=== PATIENT | male | born 1935 | race Caucasian/White ===

== ENCOUNTER → 2017-08-02 14:38 | Outpatient (CLI) | payer MEDICARE, SELFPAY | PROVIDERS: PCP Family Medicine; Visit Provider Family Medicine | DX: I49.9 Cardiac arrhythmia, unspecified (principal) | CPT/HCPCS: 93005 ==

== ENCOUNTER 2023-04-26 07:50 | Outpatient (CLI) | payer OTHER, SELFPAY ==
[2023-04-26 08:12] LABS: Basophils % 0.5 % (0.1-2.0); Eosinophils # 0.1 K/mm3 (0.0-0.4); Eosinophils % 1.7 % (0.1-12.0); Hematocrit 41.3 % (42.0-52.0); Hemoglobin 13.7 g/dL (14.1-18.0); Lymphocytes # 1.6 K/mm3 (0.7-4.5); Lymphocytes % 34.8 % (10-50); Mean Corpuscular HGB Conc 33.1 g/dL (31.8-35.4); Mean Corpuscular Hemoglobin 30.8 pg (27.0-31.2); Mean Corpuscular Volume 93.1 fl (80-94); Mean Platelet Volume 8.8 fl (7.4-10.4); Monocytes # 0.3 K/mm3 (0.1-1.0); Monocytes % 7.2 % (1.7-9.3); Neutrophils # 2.6 K/mm3 (1.8-7.8); Neutrophils % 55.8 % (37.0-80.0); Platelet Count 167 K/mm3 (142-424); Red Blood Count 4.44 M/mm3 (4.60-6.20); Red Cell Distribution Width 14.2 % (11.5-17.5); White Blood Count 4.7 K/mm3 (4.8-10.8)
[2023-04-26 08:47] LABS: Erythrocyte Sedimentation Rate 13 mm/hr (0-20)
[2023-04-26 09:12] LABS: Chloride 105 mmol/L (98-107)
[2023-04-26 09:13] LABS: Potassium 4.4 mmoL/L (3.5-5.1); Sodium 137 mmol/L (136-145)
[2023-04-26 09:15] LABS: Alanine Aminotransferase 17 U/L (12-78); Albumin Level 3.9 g/dl (3.5-5.0); Albumin/Globulin Ratio 1.4 (1.1-1.8); Alkaline Phosphatase 111 U/L (38-126); Anion Gap 7.4 mEq/L (5-15); Aspartate Amino Transferase 29 U/L (17-59); Bilirubin,Total 0.6 mg/dl (0.2-1.3); Blood Urea Nitrogen 18 mg/dl (9-20); Carbon Dioxide 29 mmol/L (22.0-30.0); Estimated Glomerular Filt Rate 91 ml/min (>60); GFR (African American) 111 ML/MIN (>60); Globulin 2.7 g/dL (1.3-3.2); Total Protein,Serum 6.6 g/dl (6.3-8.2)
[2023-04-26 09:16] LABS: Calcium 9.2 mg/dl (8.4-10.2); Glucose 86 mg/dl (74-100)
[2023-04-26 09:21] LABS: C-Reactive Protein 0.8 mg/L (0-4)
[2023-04-26 09:46] LABS: Thyroid Stimulating Hormone 2.13 uIU/mL (0.465-4.68)
[2023-04-26 15:01] LABS: Vitamin B12 414 pg/mL (239-931)
[2023-04-27 12:40] LABS: Rapid Plasma Reagin Ab Titer Non Reactive titer (NonRea<1:1)
[2023-04-29 12:13] LABS: Antinuclear Antibodies (ANA) NEGATIVE
== END 2023-04-26 23:59 ==
LOC: RT 07:52
PROVIDERS: PCP Family Medicine; Visit Provider Nurse Practitioner Family
DX: R41.82 Altered mental status, unspecified (principal); G21.9 Secondary parkinsonism, unspecified; G93.40 Encephalopathy, unspecified
CPT/HCPCS: 36415; 80053; 82607; 82746; 84443; 85025; 85651; 86038; 86140; 86225; 86235; 86593; 93270; 95816; 95819

== ENCOUNTER 2023-04-29 07:26 | Outpatient (CLI) | payer OTHER, SELFPAY ==
--- NOTE | 2023-04-29 07:26 | MR_ITS ---
FINAL REPORT CLINICAL HISTORY: Encephalopathy, imbalance, hypoperfusion FINDINGS: Multiple projection images of the brain arterial vasculature were obtained without contrast. The raw data images were also reviewed. The distal internal carotid artery has an unremarkable appearance without evidence of significant stenosis or occlusion. The distal vertebral artery is not well seen. The basilar artery is tortuous. The proximal anterior, middle and posterior cerebral arteries have an unremarkable appearance. There is no evidence of significant stenosis or major branch occlusion. No aneurysm or vascular malformation is identified. IMPRESSION: No acute process. Reviewed, Interpreted and Dictated by Raz Zhong III, MD Transcribed by Karie Valencia Authenticated and [facility]
--- NOTE | 2023-04-29 07:58 | CA_ITS ---
FINAL REPORT TECHNIQUE: Color Doppler, duplex Doppler and marcelo scale sonography of the bilateral neck arterial vasculature was performed. Velocities were measured in the carotid arteries. Stenosis evaluation based on the validated velocity criteria. CLINICAL HISTORY: Imbalance, fluctuating mental status FINDINGS: The peak systolic velocity of the right common carotid artery is 96 cm/s. The peak systolic velocity of the right internal carotid artery is 88 cm/s and end diastolic velocity 20 cm/s. The ICA/CCA ratio is 1.2. A moderate amount of plaque is present. The right external carotid artery is patent. The right vertebral artery is patent with antegrade flow. The peak systolic velocity of the left common carotid artery is 88 cm/s. The peak systolic velocity of the left internal carotid artery is 108 cm/s and end diastolic velocity 24 cm/s. The ICA/CCA ratio is 1.8. A moderate amount of plaque is present. The left external carotid artery is patent.The left vertebral artery is patent with antegrade flow. IMPRESSION: Less than 50% bilateral carotid stenoses. Bilateral patent vertebral arteries with antegrade flow. If indicated, CTA or MRA could further evaluate. Reviewed, Interpreted and Dictated by Raz Zhong III, MD Transcribed by Karie Valencia Authenticated and . [facility]
== END 2023-04-29 23:59 ==
LOC: RAD 07:26
PROVIDERS: PCP Family Medicine; Visit Provider Nurse Practitioner Family
DX: R41.82 Altered mental status, unspecified; G93.40 Encephalopathy, unspecified; G21.9 Secondary parkinsonism, unspecified; R26.89 Other abnormalities of gait and mobility
CPT/HCPCS: 70544; 93880; 94762

== ENCOUNTER 2023-05-10 08:55 | Outpatient (CLI) | payer MEDICARE, SELFPAY ==
--- NOTE | 2023-05-10 08:56 | MR_ITS ---
FINAL REPORT TECHNIQUE: Multiplanar and multisequence imaging of the brain was obtained before and after contrast injection. CLINICAL HISTORY: Encephalopathy. memory loss. unsteady gait COMPARISON: None FINDINGS: There is global cerebral atrophy with associated ex vacuo dilatation of the ventricles, age-appropriate. There is no mass effect or midline shift. Small foci of periventricular and subcortical white matter are nonspecific, favor chronic changes of ischemic/gliotic microvascular disease. No hydrocephalus. The cerebellum and brainstem have a normal appearance. There are no areas of restricted diffusion on diffusion weighted images to suggest acute infarct. Soft tissues are without acute abnormality. Post contrast images reveal no pathologic contrast enhancement. IMPRESSION: No acute intracranial abnormality and no pathologic contrast enhancement. Periventricular and subcortical T2 abnormality, likely related to changes of chronic small vessel ischemia. Reviewed, Interpreted and Dictated by Mary Blum MD Transcribed by Ann Marie Nj Authenticated and [facility]
[2023-05-10] MEDS: SODIUM CHLORIDE 0.9% 10ML SYR (RAD ONLY) 10 ML IV (10:05)
[2023-05-10] MEDS: GADOTERIDOL INJ 17ML SYRINGE 14 ML IV (10:05)
== END 2023-05-10 23:59 ==
LOC: RAD 08:56
PROVIDERS: PCP Family Medicine; Visit Provider Nurse Practitioner Family
DX: R41.82 Altered mental status, unspecified; G21.9 Secondary parkinsonism, unspecified; G93.40 Encephalopathy, unspecified
CPT/HCPCS: 70553; A9576

== ENCOUNTER 2023-06-24 07:31 | Outpatient (CLI) | payer MEDICARE, SELFPAY ==
--- NOTE | 2023-06-24 | CA_ITS ---
APPROVED REPORT Exam: Pharmacologic Technologist: Radha Cotton, Ht: 5 ft 6 in Wt: 154 lbs BSA: 1.79 m2 HR: 65 bpm BP: 185/104 mmHg Rhythm: NSR, frequent PVCs, ST-T abns inferiorly. NS ST abns laterally, minimal voltage criteria for LVH Medical History Medications: TAMSALOSIN,,,,, Vit D3,,,,, Ibuprofen,,,,, Latanoprost,,,,, OmeGA 3,,,,, FiberCON,,,,, CHOLESTyramine,,,,, Cardiac Risk Factors: FHX of CAD Stress Test Details Test: LEXISCAN HR Resting HR: 67 bpm Max Heart Rate (APMHR): 133 bpm Max HR Achieved: 91 bpm Target HR (85% APMHR): 113 bpm % of APMHR: 68 Recovery HR: 86 bpm BP Resting BP: 185/104 mmHg Max BP: 185/104 mmHg Recovery BP: 107.0/67.0 mmHg ECG Resting ECG: NSR, frequent PVCs, ST-T abns inferiorly, NS ST abns laterally, minimal voltage for LVH Stress ECG: No significant ST changes Arrhythmia: Frequent PVCs, occasional PACs Clinical Exercise duration: 04:00 min Highest Stage Achieved: Exercise capacity: 1.0 METs Stress ECG Conclusion During lexiscan pt experinced flushed feeling, no CP noted. Ectopy: Frequent PVCs, rare PAC. ST changes: No significant ST changes. Conclusion: Non diagnostic lexiscan due to baseline EKG abnormalities. Myoview images reported separately. Test Summary REST . . . . . . . Sitting REST 05:54 . . 67 . 185/104 . . Stage 1 01:00 . . 78 . . . . Stage 2 01:00 . . 84 . . . . Stage 3 01:00 . . 88 . 114/ 73 . . Stage 4 01:00 . . 82 . 103/ 61 . Stop exercise at 04:00 RECOVERY 01:00 . . 81 . 107/ 67 . . RECOVERY 02:00 . . 80 . 100/ 77 . . RECOVERY 03:00 . . 84 . 100/ 77 . . RECOVERY 04:00 . . 79 . 112/ 79 . . RECOVERY 05:00 . . 81 . 121/ 82 . . RECOVERY 05:35 . . / 82 . . Electronically signed by : Vivi Mckeon MD 06/27/2023 01:52:15
--- NOTE | 2023-06-24 07:32 | NM_ITS ---
APPROVED REPORT Exam: Nuclear Stress Test Indication: palpitations..fatigue Patient Location: Outpatient Stress Tech: Jacob NASCIMENTO Tech:EVA Cedillo RT(R)(N) Ht: 5 ft 5 in Wt: 155 lbs HR: 67 bpm BP: 185/104 mmHg BSA: 1.77 m2 Rhythm: NSR TID: 0.94 BMI: 25.7 History: palpitations..fatigue Procedure: Patient received 0.4 mg of intravenous Lexiscan, resting heart rate 67 bpm, resting blood pressure 185/104 mmHg, with Lexiscan maximum heart rate achieved was 91 bpm which is 85 % of the maximum predicted heart rate and blood pressure was 185/104 mmHg. With Lexiscan, patient denied any complaint of chest pain. Cardiac Stress and Resting SPECT Images: Cardiac Stress and Resting SPECT images were obtained using technetium 99m Myoview 32.9 mCi stress and 10.98 mCi at rest. Resting and stress imaging in supine and prone positions demonstrate no evidence of fixed or reversible perfusion defects. Gated imaging demonstrates low normal global and regional LV systolic function. LVEF is calculated at 51%. Conclusion: No evidence of fixed or reversible perfusion defects. Gated imaging demonstrates low normal global and regional LV systolic function. LVEF is calculated at 51%. Of note, during Lexiscan stress testing, the patient had frequent PVCs and occasional PACs at baseline and after administration of Lexiscan. In the setting of frequent PVCs, further evaluation with rhythm monitoring (to evaluate PVC burden) and cardiac MRI (cardiomyopathy protocol, to evaluate for myocardial fibrosis/scarring) is recommended, if clinically feasible and indicated. Electronically signed by : Vivi Mckeon MD 06/27/2023 01:56:44
--- NOTE | 2023-06-24 08:44 | CA_ITS ---
APPROVED REPORT EXAM: Comprehensive 2D, Doppler, and color-flow Echocardiogram Sewer Pipe Sorter: Yissel Olson RVT Ht: 5 ft 6 in Wt: 154lbs BSA: 1.79 BP: 154/94 mmHg Indications: VTACH,ABN EKG,BRADYCARDIA,PALPS 2D Dimensions IVSd 1.55 cm M: 0.6-1.2 LVEF (Visual) 57.40 % PWd 0.91 cm M: 0.6 - 1.2 LA Volume 53.50 mL LVDd 2.65 cm M: 4.2 - 5.9 LA Volume Index 29.89 mL/m2 (M/F) 16-34 LVDs 1.89 cm M: 2.5 - 4.0 M-Mode Dimensions LA Diam 4.14 cm (1.9-4.0) LV Diastology E Decel Time 237 (160-240 msec) E/A Ratio 0.8 Aortic Valve TIFFANY Index 0.81 cm2/m2 AoV Peak Naun. 182.0 (50-130 cm/s) AO Peak GR. 13.20 mmHg AO Mean GR. 6.80 (<5 mmHg) AO VTI 31.4 (18-25 cm) TIFFANY (VTI) 1.48 (2.5-4.5 cm2) Mitral Valve MV E Max Naun. 59.0 (40-130 cm/s) MV A Velocity 73.0 (40-130 cm/s) E/A Ratio 0.81 MV PHT 69.0 ms Pulmonary Valve PV Peak Velocity 94.0 (50-150 cm/s) Tricuspid Valve TR P. Velocity 186.00 cm/s RAP Estimate 10.00 mmHg RVSP 23.80 mmHg Left Ventricle The left ventricle is normal size. The left ventricular systolic function is normal. The left ventricular ejection fraction is within the normal range. There is increased LV wall thickness. There is normal LV segmental wall motion. Transmitral Doppler flow pattern suggests impaired LV relaxation. LVEF is 65%. Right Ventricle The right ventricle is normal size. The right ventricular systolic function is normal. Atria The left atrium size is normal. The right atrium size is normal. There is no Doppler evidence of interatrial shunt. Aortic Valve The aortic valve is mildly thickened. There is no aortic valvular stenosis. Trace aortic regurgitation. Mitral Valve The mitral valve leaflets are mildly thickened. No evidence of mitral valve stenosis. Trace mitral regurgitation. Tricuspid Valve The tricuspid valve leaflets are thin and pliable. Trace tricuspid regurgitation. There is insufficient TR jet to estimate RVSP. Pulmonic Valve The pulmonary valve is normal in structure. Trace pulmonic regurgitation. Great Vessels The aortic root is normal in size. The ascending aorta is normal in size. IVC is normal in size and collapses >50% with inspiration. Pericardium There is no pericardial effusion. Other Information Study Quality: Fair Conclusion Normal biventricular systolic function. No significant valvular stenosis or regurgitation. Electronically signed by : Vivi Mckeon MD 06/27/2023 01:10:08
[2023-06-24] MEDS: REGADENOSON 0.4MG/5ML SYRINGE 0.400000000000000022 MG IV (09:51)
[2023-06-24] MEDS: ISOTOPE MYOVIEW (PER STUDY) 1 DOSE IV (09:51)
[2023-06-24] MEDS: SODIUM CHLORIDE 0.9% 10ML SYR (RAD ONLY) 10 ML IV ×2 (09:51)
== END 2023-06-24 23:59 ==
LOC: RAD 07:32
PROVIDERS: PCP Family Medicine; Visit Provider Nurse Practitioner
DX: R94.31 Abnormal electrocardiogram [ECG] [EKG] (principal); R00.2 Palpitations; R00.1 Bradycardia, unspecified; K21.9 Gastro-esophageal reflux disease without esophagitis; I47.20 Ventricular tachycardia, unspecified
CPT/HCPCS: 78452; 93017; 93018; 93306; A9502; J2785

== ENCOUNTER 2024-09-20 12:11 | Day surgery (SDC) | payer MEDICARE, SELFPAY ==
--- NOTE | 2024-09-20 12:57 | EXP.HP ---
History of Present Illness *Admission Date: 09/20/24 *Reason for visit:: Change in bowel habits, diarrhea with urgency *History of present illness: Mr. Kulkarni is an 89-year-old gentleman with a change in his bowel habits with diarrhea, urgency. The patient does have a family history of colon cancer (mother) and a history of multiple adenomatous colon polyps. His last colonoscopy in 2019 revealed 8 polyps (adenomatous colon polyps x 8). He is here for diagnostic colonoscopy. The examination is deemed medically necessary for diagnostic colonoscopy. The patient has been seen, interviewed and examined prior to the procedure by both myself and the anesthesia provider. [facility] Disclaimer: The information contained in this section may have been updated after the patient was seen, as this information can be updated by other users. Medical History Stubbs esophagus Enlarged prostate Chronic colitis GERD (gastroesophageal reflux disease) Glaucoma Surgical History History of hernia repair Hx of appendectomy History of cholecystectomy Family History Other Cancer Coronary artery disease Stroke Social History Smoking Status: Never smoker alcohol intake: never substance use type: denies use current occupational status: retired and other Travel in the last 8 weeks?: None household members: spouse housing: house marital status: caffeine: Yes Have you lived/traveled outside [place] in past 30 days?: No Contact w/someone who lives/traveled outside US past 30 days?: No Exposure to someone with infectious disease in past 14 days?: No Do you have a fever (greater than 100.4 F or 38 C)?: No Have you tested positive for COVID-19?: No Exposed to someone with COVID-19 in past 14 days?: No Do you have a sore throat?: No Do you have a cough?: No Do you have any weakness?: No Do you have any diarrhea?: No Are you experiencing any unusual bleeding?: No Do you have any muscle aches/pain?: No Do you have any abdominal pain?: No Are you experiencing loss of taste or smell?: No Other Medical History Have you received the Flu Vaccine for this season: Yes Have you received the Pneumonia Vaccine: Yes Review of Systems Review of Systems Review of systems (narrative): Negative *Cardiovascular Comments: Negative *Gastrointestinal Comments: Negative *Genitourinary Comments: Negative *Musculoskeletal Comments: Negative *Neurologic Comments: Negative Meds Home Medications and Allergies Home Medications ?Medication ?Instructions ?Recorded ?Confirmed ?Type ibuprofen 200 mg capsule 200 mg PO QID PRN pain 07/06/17 09/20/24 History tamsulosin 0.4 mg capsule 0.4 mg PO DAILY prostate 11/21/18 09/20/24 History brimonidine 0.2 %-timolol 0.5 % 1 drp Eye-Both BID 04/20/23 09/20/24 History eye drops cholestyramine (with sugar) 4 gram 1 ea PO BID 04/20/23 09/20/24 History powder for susp in a packet latanoprost 0.005 % eye drops 1 drp Eye-Both HS 04/20/23 09/20/24 History carbidopa ER 25 mg-levodopa 100 mg 1 tab PO TID Parkinsonian syndrome 03/27/24 09/20/24 Rx tablet,extended release #270 tabs cholecalciferol (vitamin D3) 25 25 mcg PO DAILY 03/27/24 09/20/24 History mcg (1,000 unit) capsule polyethylene glycol 3350 17 17 g PO DAILY 07/31/24 09/20/24 History gram/dose oral powder (Miralax) psyllium husk 3.4 gram/5.4 gram 1 tbsp PO DAILY 07/31/24 09/20/24 History oral powder (Metamucil) New Prescriptions to Start Prescriptions: Allergies Allergy/AdvReac Type Severity Reaction Status Date / Time Antihistamines - Alkylamine Allergy Unknown Unknown Verified 09/20/24 13:00 allergy reaction erythromycin base Allergy Unknown Unknown Verified 09/20/24 13:00 allergy reaction Exam *Routine HEENT Exam Head: Present normocephalic Eye: Present EOMI and PERRL ENT: Present mucous membranes moist *Routine Neck Exam Neck: Present supple *Routine Respiratory Exam Respiratory: Present CTA bilaterally *Routine Cardiovascular Exam Cardiovascular: Present RRR *Routine Abdominal Exam Abdominal: Present soft and normoactive bowel sounds; Absent tenderness *Routine Rectal Exam Rectal:: deferred *Routine Genitalia Exam Genitalia:: deferred *Routine Extremities Exam Extremities: Absent cyanosis, clubbing or edema *Routine Skin Exam Skin: Present warm; Absent rash *Routine Neurological Exam Neurological: Present alert and oriented X3 Assessment and Plan *Assessment and plan (1) Change in bowel habits: Status: Acute Category: Medical Code(s): R19.4 - Change in bowel habit (2) Diarrhea: Status: Acute Category: Medical Code(s): R19.7 - Diarrhea, unspecified (3) Incontinence of feces: Status: Acute Category: Medical Code(s): R15.9 - Full incontinence of feces (4) Bile acid malabsorption syndrome: Status: Acute Category: Medical Code(s): K90.89 - Other intestinal malabsorption (5) Personal history of adenomatous and serrated colon polyps: Status: Acute Category: Medical Code(s): Z86.0101 - Personal history of adenomatous and serrated colon polyps (6) Family history of colon cancer in mother: Status: Acute Category: Medical Code(s): Z80.0 - Family history of malignant neoplasm of digestive organs Plan A/P: 1. Change in bowel habits with diarrhea and fecal incontinence is the preprocedural diagnosis. The patient also has a personal history of multiple adenomatous colon polyps on colonoscopy in 2019 (8 adenomatous polyps removed) and his mother had colon cancer. The patient will be anesthetized/sedated using MAC sedation. The patient has been seen and examined. Cardiac and lung assessment prior to the examination is stable. Proceed with planned diagnostic colonoscopy.
[2024-09-20 13:04] VITALS: BP 175/89; PULSE 68; RESP 17; TEMP 36.1; O2SAT 95
--- NOTE | 2024-09-20 13:40 | P.PNANES_ITS ---
[facility] Disclaimer: The information contained in this section may have been updated after the patient was seen, as this information can be updated by other users. Medical History Stubbs esophagus Enlarged prostate Chronic colitis GERD (gastroesophageal reflux disease) Glaucoma Surgical History History of hernia repair Hx of appendectomy History of cholecystectomy Family History Other Cancer Coronary artery disease Stroke Social History Smoking Status: Never smoker alcohol intake: never substance use type: denies use current occupational status: retired and other Travel in the last 8 weeks?: None household members: spouse housing: house marital status: caffeine: Yes Have you lived/traveled outside [place] in past 30 days?: No Contact w/someone who lives/traveled outside US past 30 days?: No Exposure to someone with infectious disease in past 14 days?: No Do you have a fever (greater than 100.4 F or 38 C)?: No Have you tested positive for COVID-19?: No Exposed to someone with COVID-19 in past 14 days?: No Do you have a sore throat?: No Do you have a cough?: No Do you have any weakness?: No Do you have any diarrhea?: No Are you experiencing any unusual bleeding?: No Do you have any muscle aches/pain?: No Do you have any abdominal pain?: No Are you experiencing loss of taste or smell?: No [facility] Anesthesia Checklist Patient Identification Patient Identification: Arm Band and Family Structural Data Admitted From: Home Planned Operative Procedure/s: colonscopy Consent for Planned Operative Procedure(s) Verified: Yes Verified Documents: Surgical Consent and History and Physical NPO Status Verified Time NPO: 00:00 Additional verifications Patient : No Anesthesia Reactions: No Hx Blood Transfusions: No Blood Transfusion Reaction: No Cephalosporin Allergy: No Previous Colonoscopy: Yes Airway Assessment Mallampati Score:: Class III C-Spine Mobility Assessed: Yes TMJ Mobility Assessed: Yes Dentition: Good Dentition Neurological Assessment Level of Consciousness: Awake, Alert, Appropriate and Follows Commands Hx Seizures: No Numbness or tingling in extremities: No Anesthesia Plan Anesthesia Risk discussed: Yes ASA Class: II Anesthesia Type: MAC Preoperative Comments Pre-Operative Comments: History of dementia.
--- NOTE | 2024-09-20 14:12 | HMH.PROCNOTE ---
[facility] Procedure Note Date: 09/20/24 Time: 14:27 Procedure Note:: Colonoscopy Procedure Report: Colonoscopy with cold snare polypectomy and cold biopsies Endoscopist: Geovanny Mireles II, MD Referring physician: Michael Beaver MD Date of Procedure: September 20, 2024 Equipment: Olympus 190 variable stiffness pediatric colonoscope Sedation: MAC sedation Indication: Mr. Kulkarni is an 89-year-old gentleman who is here for diagnostic colonoscopy. The patient reports a change in his bowel habits. He reports bowel urgency and fecal incontinence. He does have some irregular bowel function which can sometimes be lumpy or like rabbit pellets. He has had more constipation over the last several months and does report incomplete defecation. He may skip days without a bowel movement and then he goes to having the small caliber stools. MiraLAX results in diarrhea. He was on cholestyramine. His mother was diagnosed with colon cancer in her 70s. His last colonoscopy with hi in November 2018 revealed 8 polyps (tubular adenomas x 6/small serrated adenomas x 2) which were removed. He reports no abdominal pain or rectal bleeding. Procedure: Prior to the procedure, a history and physical exam was performed, and patient's medications and allergies were reviewed. The risks, benefits and alternatives of the sedation and procedure were discussed with the patient. All questions were answered and informed consent was obtained. The patient was brought to the procedure room. Patient identification and proposed procedure were verified by the physician and the nurse. The patient was placed in a left lateral decubitus position and the scope was passed under direct vision. Throughout the procedure, the patient's blood pressure, pulse, and oxygen saturations were monitored continuously. The colonoscopy was accomplished without difficulty. The patient tolerated the procedure well. Findings: On digital rectal examination there was normal rectal tone. There were no external hemorrhoids. The prostate was 2-3+, mildly enlarged but symmetric without nodules. The colonoscope was introduced through the anal canal to the rectum and advanced to the cecum. The ileocecal valve and appendiceal orifice were identified. The scope was advanced a short distance into the ileum which appeared grossly normal. The scope was then withdrawn into the colon. There were 2 polyps (ascending x 1 (5 mm) and transverse x 1 (4 mm)). Both of these were removed via cold snare polypectomy. The remaining cecum, ascending and transverse colon and mucosa were grossly normal. Cold biopsies were taken from the right colon to rule out microscopic colitis. There were scattered diverticuli throughout the descending and sigmoid colon (LEFT colon). The rectum itself was normal. Upon retroflexion within the rectum there were grade 2 internal hemorrhoids. The preparation was excellent throughout with Marengo Preparation Score of 9. The cecal time was 14 minutes. Impression: 1. Diminutive colonic polyps x 2 2. Left-sided diverticulosis 3. Grade 2 internal hemorrhoids Plan: I will follow-up the biopsies. The patient does have outlet dysfunction constipation and defecatory difficulties with intermittent bowel control difficulties. I would recommend that he resume a good fiber bowel regimen (MiraLAX plus Konsyl) daily. I also feel that he would benefit from defecatory training with pelvic floor physical therapy. I will discuss the findings with the patient and family.
[2024-09-20 14:30] VITALS: BP 119/69; PULSE 66; RESP 16; TEMP 36.3; O2SAT 100
[2024-09-20 14:40] VITALS: BP 129/70; PULSE 56; RESP 16; O2SAT 100
[2024-09-20 14:50] VITALS: BP 129/90; PULSE 51; RESP 16; O2SAT 100
[2024-09-20 14:56] VITALS: BP 134/96; PULSE 55; RESP 18; O2SAT 100
== END 2024-09-20 14:57 | disposition home or self-care (01) ==
PROVIDERS: PCP Family Medicine; Visit Provider Internal Medicine Gastroenterology
PROC: 0DJD8ZZ Inspection of Lower Intestinal Tract, Via Natural or Artificial Opening Endoscopic (ICD-10-PCS; CPT 45378; principal; 2024-09-20 13:30)
DX: D12.3 Benign neoplasm of transverse colon (principal); R19.4 Change in bowel habit; R19.7 Diarrhea, unspecified; R15.9 Full incontinence of feces; K90.89 Other intestinal malabsorption; K57.30 Diverticulosis of large intestine without perforation or abscess without bleeding; K64.1 Second degree hemorrhoids; K63.5 Polyp of colon; N40.0 Benign prostatic hyperplasia without lower urinary tract symptoms; K21.9 Gastro-esophageal reflux disease without esophagitis; H40.9 Unspecified glaucoma; Z86.0101 Personal history of adenomatous and serrated colon polyps; Z80.0 Family history of malignant neoplasm of digestive organs; Z90.49 Acquired absence of other specified parts of digestive tract; Z87.19 Personal history of other diseases of the digestive system; Z79.899 Other long term (current) drug therapy; Z88.8 Allergy status to other drugs, medicaments and biological substances; Z88.1 Allergy status to other antibiotic agents
CPT/HCPCS: 45380; 45385; J2003; J2704